=== PATIENT | female | born 1925 | race Caucasian/White ===

== ENCOUNTER → 2016-09-26 | Outpatient (CLI) | payer MEDICARE, OTHER ==
[~2016-09-26] MED LIST: ASPIRIN; ASPIRIN PO; EVISTA60 M1; EVISTA60 MG PO; LIPITOR; LIPITOR PO; LORTAB 5/500 TA1 TA1 PO; MEDROL PO; NAPROXEN SODIU220 M1 PO; VICODIN 5/500 T1 TAB PO
--- NOTE | ~2016-09-26 | US37 ---
[facility] A Service of [facility] RADIOLOGY TEXT RESULTS PATIENT: ART MICHAEL LOCATION: SNIV : [birth year] UNIT #: [id number] AGE: [address]: Luz Schaffer MD SEX: F ORDER DR: [id number] [address] [address] [id number] O MR#: [id number] Acc #: [id number] NAME: ART MICHAEL : 1925 SEX: F STUDY DATE/TIME: 09/26/2016 13:23 UNIT: SNIV ROOM: STUDY DESCRIPTION: US Carotid W/Doppler Bilateral Attending Physician: Luz Schaffer M.D. Referring Physician: Luz Schaffer M.D. Ordering Physician: Luz Schaffer M.D. Primary Care Physician: Luz Schaffer M.D. MEDICAL IMAGING REPORT This report is preliminary unless electronic signature is present. EXAM Carotid duplex scan 09/26/2016 HISTORY Dizziness. FINDINGS The right common carotid artery has dense irregular plaque, which extends up into the proximal internal and external carotid arteries. Peak systolic velocity in the distal right internal carotid artery is 106 cm/sec with an end diastolic velocity of 32 cm/sec. The ICA/CCA Ratio on the right is 1.6. Peak systolic velocity in the right external carotid artery is 102 cm/sec. The right vertebral artery is patent with antegrade flow. The left common carotid artery has dense irregular plaque, which extends up into the proximal internal and external carotid arteries. Peak systolic velocity in the mid left internal carotid artery is 114 cm/sec with an end diastolic velocity of 26 cm/sec. The ICA/CCA Ratio on the left is 1.4. Peak systolic velocity in the left external carotid artery is 107 cm/sec. The left vertebral artery is patent with antegrade flow. IMPRESSION Plaque, but no significant stenosis (less than 50%) in the internal and external carotid arteries bilaterally. Patent vertebral arteries bilaterally with antegrade flow. Dictated by... Elijah Simmons M.D. [facility] A Service of [facility] RADIOLOGY TEXT RESULTS PATIENT: ART MICHAEL LOCATION: SNIV : [birth year] UNIT #: [id number] AGE: [address]: Luz Schaffer MD SEX: F ORDER DR: THIS IS AN ELECTRONICALLY VERIFIED REPORT Elijah Simmons M.D. at 09/29/2016 8:16 AM Valery TD: 09/26/2016 17:30 JOB #: [id number] MEDICAL IMAGING REPORT Page 1 of 1
== END | disposition home or self-care (01) ==
LOC: SNIV 13:18
DX: R42 Dizziness and giddiness (principal); I65.23 Occlusion and stenosis of bilateral carotid arteries
CPT/HCPCS: 93880